=== PATIENT | male | born 1980 | race Caucasian/White ===

== ENCOUNTER 2018-03-24 08:58 | Emergency (ER) | payer OTHER ==
[~2018-03-24] VITALS: Ht 175.3 cm; Wt 85.5 kg
[2018-03-24] MEDS ORDERED: ALBU18HF INH (09:23)
[2018-03-24] MEDS ORDERED: [UNRECOGNIZED DRUG - OTHER] (09:24)
[2018-03-24] MEDS ORDERED: METHOCARBAMOL 750 MG TABLET PO ONE (10:00)
[2018-03-24] MEDS ORDERED: ACETAMINOPHEN 500 MG TABLET PO ONE (10:00)
[2018-03-24] MEDS ORDERED: METHOCARBAMOL 750 MG TABLET ONE (10:03)
[2018-03-24] MEDS ORDERED: ACETAMINOPHEN 500 MG TABLET ONE (10:04)
[2018-03-24 10:21] VITALS: BP 107/71
== END 2018-03-24 11:04 | disposition home or self-care (01) ==
LOC: ED 10:29
DX: S30.0XXA Contusion of lower back and pelvis, initial encounter (principal); J45.909 Unspecified asthma, uncomplicated; W19.XXXA Unspecified fall, initial encounter; Y93.23 Activity, snow (alpine) (downhill) skiing, snowboarding, sledding, tobogganing and snow tubing; Y92.828 Other wilderness area as the place of occurrence of the external cause; Y99.8 Other external cause status
CPT/HCPCS: 72110; 72190; 72220; 99283

== ENCOUNTER 2018-07-28 04:46 | Emergency (ER) | payer OTHER ==
[~2018-07-28] VITALS: Ht 175.3 cm; Wt 86.3 kg
[~2018-07-28 04:46] MED LIST: ALBU18HF INH; [UNRECOGNIZED DRUG - OTHER]
[2018-07-28] MEDS ORDERED: FLUT1AER INH (04:53)
--- NOTE | 2018-07-28 05:00 | NUR ---
FIRST CONTACT WITH PT. PT C/O DIFFUSE ABD PAIN WITH NAUSEA x2 HOURS. STATES WORSE LRQ. STATES STILL HAS APPENDIX. DENIES V/D AT THIS TIME. BP/SPO2 MONITORS IN PLACE. CALL LIGHT WITHIN REACH. EDMD AT BEDSIDE TO ASSESS AT THIS TIME. PT'S AOX4. RESPS EVEN AND UNLABORED.
[2018-07-28] MEDS ORDERED: ONDANSETRON 2MG/ML, 2ML ONE ×2 (05:12→08:02)
[2018-07-28] MEDS ORDERED: MORPHINE SULFATE 4 MG/ML, 1ML ONE ×2 (05:12→06:24)
[2018-07-28] MEDS: MORPHINE SULFATE 4 MG/ML, 1ML IVPush PRN ×2 (05:14→06:27)
--- NOTE | 2018-07-28 05:19 | NUR ---
PT MEDICATED PER EMAR FOR PAIN/ PT TOLERATED WELL.
[2018-07-28] MEDS ORDERED: ONDANSETRON 2MG/ML, 2ML IVPush ONE ×2 (05:30→08:30)
[2018-07-28] MEDS ORDERED: SODIUM CHLORIDE FLUSH 10ML SYR IVF ONE (05:30)
[2018-07-28 05:34] LABS: ALANINE AMINOTRANSFERASE 21 U/L (12-78); ANION GAP 5 mmol/L (5-15); CALCIUM 8.5 mg/dL (8.5-10.1); CHLORIDE 111 mmol/L (98-107); CREATININE 1.03 mg/dL (0.7-1.3)
[2018-07-28] MEDS ORDERED: FEXO60TA24 PO (05:34)
--- NOTE | 2018-07-28 05:35 | NUR ---
PT BACK TO ROOM FROM XRAY.
[2018-07-28 05:37] LABS: ALKALINE PHOSPHATASE 54 U/L (45-117); BILIRUBIN,TOTAL 0.5 mg/dL (0.2-1.0); TOTAL PROTEIN 6.8 g/dL (6.4-8.2)
--- NOTE | 2018-07-28 06:08 | NUR ---
PT'S PAIN LEVEL IS 8/10 AT THIS TIME, BUT PT REFUSED PAIN MED NOW.
[2018-07-28 06:19] LABS: BASOPHILS # (AUTO) 0.03 x10^3/uL (0-0.1); BASOPHILS % (AUTO) 1 % (0-1); EOSINOPHILS # (AUTO) 0.28 x10^3/uL (0-0.4); EOSINOPHILS % (AUTO) 4 % (1-7); LYMPHOCYTES # (AUTO) 1.57 x10^3/uL (1-3.4); LYMPHOCYTES % (AUTO) 25 % (22-44); MD NO; MEAN CORPUSCULAR HEMOGLOBIN 31.4 pg (27.5-34.5); MEAN CORPUSCULAR HGB CONC 34.3 g/dL (33.2-36.2); MEAN CORPUSCULAR VOLUME 91.5 fL (81-97); MEAN PLATELET VOLUME 7.7 fL (7.4-10.4); MONOCYTES # (AUTO) 0.49 x10^3/uL (0.2-0.8); MONOCYTES % (AUTO) 8 % (2-9); NEUTROPHILS # (AUTO) 3.89 x10^3/uL (1.8-6.8); NEUTROPHILS % (AUTO) 62 % (42-75); PLATELET COUNT 274 x10^3/uL (130-400); RED BLOOD COUNT 4.57 x10^6/uL (4.38-5.82); RED CELL DISTRIBUTION WIDTH 13.1 % (9.4-14.8)
--- NOTE | 2018-07-28 06:29 | NUR ---
PT REQUESTING PAIN MED. PT MEDICATED PER EMAR FOR PAIN. PT TOLERATED WELL.
--- NOTE | 2018-07-28 06:42 | NUR ---
PT TO CT NOW.
--- NOTE | 2018-07-28 06:45 | NUR ---
RECEIVED REPORT FROM NICO
--- NOTE | 2018-07-28 06:46 | NUR ---
REPORT GIVEN TO ANGEL AMAYA.
[2018-07-28] MEDS ORDERED: OMNIPAQUE 350 MG/ML, 100ML BOTTLE ONE (06:59)
[2018-07-28] MEDS ORDERED: CIPROFLOXACIN 500 MG TABLET ONE (07:58)
[2018-07-28] MEDS ORDERED: metroNIDAZOLE 500 MG TABLET ONE (07:59)
--- NOTE | 2018-07-28 08:06 | NUR ---
PT NAUSEATED AND ZOFRAN GIVEN 4 MG IV.
--- NOTE | 2018-07-28 08:41 | NUR ---
PT DISCHARGED WITH DISCHARGE INSTRUCTIONS AND FOLLOW UP INSTRUCTIONS.
[2018-07-28 08:42] VITALS: BP 96/64
--- NOTE | 2018-07-28 08:54 | NUR ---
PT DISCHARGED WITH DISCHARGE INSTRUCTIONS AND FOLLW UP INSTRUCTIONS. PT UP AMBULATOR AND STABLE ON FEET.
[2018-07-28] MEDS ORDERED: CIPROFLOXACIN 500 MG TABLET PO ONE (09:00)
[2018-07-28] MEDS ORDERED: metroNIDAZOLE 500 MG TABLET PO ONE (09:00)
== END 2018-07-28 08:57 | disposition home or self-care (01) ==
LOC: ED 08:32
DX: K57.32 Diverticulitis of large intestine without perforation or abscess without bleeding (principal); J45.909 Unspecified asthma, uncomplicated
CPT/HCPCS: 36415; 74021; 74177; 80053; 83690; 85025; 96374; 96375; 96376; 99284; J2405; Q9967

== ENCOUNTER 2019-07-04 22:26 | Emergency (ER) | payer OTHER ==
[~2019-07-04] VITALS: Ht 177.8 cm; Wt 90.0 kg
[~2019-07-04 22:26] MED LIST changes: +FEXO60TA24 PO; +FLUT1AER INH
[2019-07-04 23:31] LABS: BASOPHILS # (AUTO) 0.04 x10^3/uL (0-0.1); BASOPHILS % (AUTO) 1 % (0-1); EOSINOPHILS # (AUTO) 0.25 x10^3/uL (0-0.4); EOSINOPHILS % (AUTO) 4 % (1-7); LYMPHOCYTES # (AUTO) 1.53 x10^3/uL (1-3.4); LYMPHOCYTES % (AUTO) 26 % (22-44); MD NO; MEAN CORPUSCULAR HEMOGLOBIN 30.9 pg (27.5-34.5); MEAN CORPUSCULAR HGB CONC 33.8 g/dL (33.2-36.2); MEAN CORPUSCULAR VOLUME 91.3 fL (81-97); MEAN PLATELET VOLUME 7.3 fL (7.4-10.4); MONOCYTES # (AUTO) 0.52 x10^3/uL (0.2-0.8); MONOCYTES % (AUTO) 9 % (2-9); NEUTROPHILS # (AUTO) 3.54 x10^3/uL (1.8-6.8); NEUTROPHILS % (AUTO) 60 % (42-75); PLATELET COUNT 292 x10^3/uL (130-400); RED BLOOD COUNT 4.68 x10^6/uL (4.38-5.82); RED CELL DISTRIBUTION WIDTH 13.2 % (9.4-14.8)
[2019-07-04 23:42] LABS: ALBUMIN 3.9 g/dL (3.4-5.0); ANION GAP 5 mmol/L (5-15); CALCIUM 8.8 mg/dL (8.5-10.1); CHLORIDE 108 mmol/L (98-107); CREATININE 1.29 mg/dL (0.7-1.3)
[2019-07-04 23:45] LABS: TROPONIN I < 0.015 ng/mL (0.000-0.045)
[2019-07-05 00:02] VITALS: BP 98/57
== END 2019-07-05 00:45 | disposition home or self-care (01) ==
LOC: ED 23:28
DX: R06.00 Dyspnea, unspecified (principal); Z20.828 Contact with and (suspected) exposure to other viral communicable diseases; R94.31 Abnormal electrocardiogram [ECG] [EKG]; J45.909 Unspecified asthma, uncomplicated
CPT/HCPCS: 36415; 71045; 80048; 82040; 83880; 84484; 85025; 93005; 99285

== ENCOUNTER 2020-03-31 09:10 | Day surgery (SDC) | payer OTHER ==
[~2020-03-31] VITALS: Ht 177.8 cm; Wt 85.0 kg
[2020-03-31] MEDS ORDERED: SODIUM CHLORIDE 0.9% 1,000 ML IV SCH (09:30)
[2020-03-31 09:35] VITALS: BP 128/65
[2020-03-31 09:52] LABS: BASOPHILS % (AUTO) 1 % (0-1); EOSINOPHILS % (AUTO) 3 % (1-7); LYMPHOCYTES % (AUTO) 20 % (22-44); MEAN CORPUSCULAR HEMOGLOBIN 30.9 pg (27.5-34.5); MEAN CORPUSCULAR HGB CONC 34.4 g/dL (33.2-36.2); MEAN PLATELET VOLUME 7.4 fL (7.4-10.4); MONOCYTES % (AUTO) 9 % (2-9); NEUTROPHILS % (AUTO) 68 % (42-75); PLATELET COUNT 298 x10^3/uL (130-400); RED BLOOD COUNT 4.81 x10^6/uL (4.38-5.82); RED CELL DISTRIBUTION WIDTH 13.3 % (9.4-14.8)
[2020-03-31 09:53] LABS: MD NO
[2020-03-31 10:03] LABS: ANION GAP 6 mmol/L (5-15); CALCIUM 8.7 mg/dL (8.5-10.1); CHLORIDE 111 mmol/L (98-107); CREATININE 1.15 mg/dL (0.7-1.3)
[2020-03-31] MEDS ORDERED: MIDAZOLAM 1 MG/ML, 5ML ONE (11:20)
[2020-03-31] MEDS ORDERED: FENTANYL PF 100 MCG/2ML ONE (11:21)
[2020-03-31] MEDS ORDERED: ADENOSINE 6 MG/2 ML ONE (11:21)
[2020-03-31] MEDS ORDERED: ISOPROTERENOL 0.2MG/ML, 5ML ONE (11:21)
[2020-03-31] MEDS ORDERED: LIDOCAINE 2%, 20ML ONE (11:21)
[2020-03-31] MEDS ORDERED: ACETAMINOPHEN 325 MG TABLET ONE (16:50)
[2020-03-31] MEDS ORDERED: ACETAMINOPHEN 325 MG TABLET PO PRN (17:00)
== END 2020-03-31 17:57 | disposition home or self-care (01) ==
LOC: CACL 09:10
PROVIDERS: ATTEND Internal Medicine Cardiovascular Disease
DX: I47.1 Supraventricular tachycardia (principal); Z88.1 Allergy status to other antibiotic agents; Z88.8 Allergy status to other drugs, medicaments and biological substances
CPT/HCPCS: 36415; 71046; 80048; 85025; 93005; 93613; 93621; 93623; 93653; 99156; 99157; C1730; C1732; C1766; C1769; C1894; J0153; J2250; J3010